=== PATIENT | male | born 1975 | race Hispanic/Latino ===

== ENCOUNTER 2016-05-09 16:20 | Emergency (ER) | payer OTHER ==
[~2016-05-09] VITALS: Ht 172.7 cm; Wt 80.7 kg
[2016-05-09] MEDS ORDERED: TRAM1CAP15 PO (16:29)
[2016-05-09] MEDS ORDERED: MOBI7.5T10 PO (16:29)
[2016-05-09] MEDS ORDERED: NAPR500T PO (17:32)
[2016-05-09] MEDS ORDERED: CYCL10TA PO (17:32)
[2016-05-09 17:34] VITALS: BP 128/75
== END 2016-05-09 17:48 | disposition home or self-care (01) ==
LOC: M ED 17:32
DX: M54.12 Radiculopathy, cervical region (principal)